=== PATIENT | female | born 1990 | race American Indian/Alaskan Native ===

== ENCOUNTER 2017-12-04 12:42 | Emergency (ER) | payer MEDICAID ==
[~2017-12-04] VITALS: Ht 170.2 cm; Wt 129.0 kg
[2017-12-04 18:45] VITALS: BP 126/74
== END 2017-12-04 19:01 | disposition home or self-care (01) ==
LOC: ER 14:56
DX: J98.01 Acute bronchospasm (principal); J45.909 Unspecified asthma, uncomplicated
CPT/HCPCS: 71045; 81025; 87804; 99285